=== PATIENT | female | born 1980 | race Caucasian/White ===

== ENCOUNTER 2018-04-24 13:30 | Emergency (ER) | payer OTHER ==
[~2018-04-24] VITALS: Ht 160 cm; Wt 70.3 kg
[~2018-04-24 13:30] MED LIST: DICY20TA32 PO; DIPH50TA15 PO; IBUP-1957 PO; LAMO25TA5 PO; METH500T PO; PROC10VI IJ; QUET50TA PO
--- NOTE | 2018-04-24 13:30 | NUR ---
Note taylorone in EDM - 04/24/18 at 1415 by STEPHEN [id number] FROM [facility]SING HOME FOR WITNESSED SYNCOPE X 10 SECONDS, PT IS COMPLAINING NOW OF SEVERE HEADACHE AND BACK PAIN. BS-139 IN THE FIELD. PT IS TACHYCARDIC. PLACED ON CONT CARDIAC AND POX MONITORING. ALL NEEDS ARE ATTENDED, KEPT COMFORTABLE. PENDING ER MD LIMON
--- NOTE | 2018-04-24 13:30 | NUR ---
[id number] FROM [facility] FOR WITNESSED SEIZURE X 10 SECONDS, PT IS COMPLAINING NOW OF SEVERE HEADACHE AND BACK PAIN. BS-139 IN THE FIELD. PT IS TACHYCARDIC. PLACED ON CONT CARDIAC AND POX MONITORING. ALL NEEDS ARE ATTENDED, KEPT COMFORTABLE. PENDING ER MD LIMON
[2018-04-24] MEDS ORDERED: IV NS 0.9% 1,000 ML BAG IV ONE (14:30)
[2018-04-24 15:05] LABS: BASOPHILS % (AUTO) 0.4 % (0.0-2.0); EOSINOPHILS % (AUTO) 2.1 % (0.0-6.0); HEMATOCRIT 37 % (33-45); HEMOGLOBIN 12.6 g/dL (11.5-14.8); LYMPHOCYTES # (AUTO) 1.6 /CMM (0.8-4.8); LYMPHOCYTES % (AUTO) 26.2 % (20.0-44.0); MEAN CORPUSCULAR HGB CONC 34 g/dl (31.0-36.0); MEAN CORPUSCULAR VOLUME 84 fL (82-100); MONOCYTES # (AUTO) 0.5 /CMM (0.1-1.30); MONOCYTES % (AUTO) 9.1 % (2.0-12.0); NEUTROPHILS # (AUTO) 3.8 /CMM (1.8-8.9); NEUTROPHILS % (AUTO) 62.2 % (43.0-81.0); PLATELET COUNT (AUTO) 411 /CMM (150-450); RDW COEFFICIENT OF VARIATION 17.6 (11.5-15.0); RED BLOOD CELL COUNT(AUTO) 4.44 MIL/uL (4.0-5.2)
[2018-04-24 15:19] LABS: INR 0.97 (0.85-1.15)
[2018-04-24 15:20] LABS: CALCIUM, SERUM 8.8 mg/dL (8.5-10.1); CARBON DIOXIDE 26 mmol/L (21-32); CHLORIDE 107 mmol/L (98-107); CREATININE 0.7 mg/dL (0.6-1.3); GLUCOSE 118 mg/dL (74-106); SODIUM SERUM 140 mmol/L (136-145); UREA NITROGEN, BLOOD 18 mg/dL (7-18)
[2018-04-24 15:21] LABS: ALANINE AMINOTRANSFERASE 66 U/L (12-78); ALBUMIN 3.5 g/dL (3.4-5.0); ALCOHOL, BLOOD < 3 mg/dL (0-0); ALKALINE PHOSPHATASE 66 U/L (46-116); ASPARTATE AMINOTRANSFERASE 28 U/L (15-37); BILIRUBIN,TOTAL 0.1 mg/dL (0.2-1.0)
[2018-04-24 17:51] VITALS: BP 130/90
[2018-04-24] MEDS ORDERED: IBUPROFEN 600 MG TABLET PO ONE (18:00)
== END 2018-04-24 17:52 | disposition home or self-care (01) ==
LOC: ER 13:31
DX: R55 Syncope and collapse (principal); E86.0 Dehydration; M54.9 Dorsalgia, unspecified; G89.29 Other chronic pain; G40.909 Epilepsy, unspecified, not intractable, without status epilepticus; I48.91 Unspecified atrial fibrillation; F41.9 Anxiety disorder, unspecified; F17.200 Nicotine dependence, unspecified, uncomplicated; Z98.51 Tubal ligation status
CPT/HCPCS: 36415; 70450; 71045; 72070; 72100; 72125; 80048; 80076; 80305; 82962; 84703; 85025; 85730; 93005; 96360; 99285; A4606; G0480; J7030; Z7610

== ENCOUNTER 2018-07-12 18:56 | Emergency (ER) | payer OTHER ==
[~2018-07-12] VITALS: Ht 165.1 cm; Wt 56.7 kg
[2018-07-12 19:00] VITALS: BP 123/86
[2018-07-12] MEDS ORDERED: IBUPROFEN 600 MG TABLET PO ONE ×2 (21:00)
== END 2018-07-12 21:05 ==
LOC: ER 18:59
DX: M54.9 Dorsalgia, unspecified (principal); G89.29 Other chronic pain; F41.9 Anxiety disorder, unspecified; F17.200 Nicotine dependence, unspecified, uncomplicated; I48.91 Unspecified atrial fibrillation; Z98.51 Tubal ligation status; Y04.8XXA Assault by other bodily force, initial encounter; Y93.89 Activity, other specified; Y92.89 Other specified places as the place of occurrence of the external cause; Y99.8 Other external cause status
CPT/HCPCS: 99283; A4606; Z7610

== ENCOUNTER 2019-06-30 09:03 | Emergency (ER) | payer OTHER ==
[~2019-06-30] VITALS: Ht 162.6 cm; Wt 63.5 kg
[2019-06-30] MEDS ORDERED: IBUPROFEN 400 MG TABLET ONE (09:14)
--- NOTE | 2019-06-30 09:15 | NUR ---
PATIENT AWAKE ALERT AMBULATORY CUSTODY WITH [employer] STANDBY
[2019-06-30] MEDS ORDERED: IBUPROFEN 400 MG TABLET PO ONE (09:30)
[2019-06-30] MEDS ORDERED: HYDROCODONE/APAP 5/325MG 1 EACH TABLET ONE (10:37)
--- NOTE | 2019-06-30 10:41 | NUR ---
OK TO BOOKED DC TO PATRICE AGREES TO FOLLOW UP PMD DC INSTRUCTION AND PRESCRIPTION GIVEN TO THE OFFICER PATRICE
[2019-06-30 10:45] VITALS: BP 134/78
[2019-06-30] MEDS ORDERED: HYDROCODONE/APAP 5/325MG 1 EACH TABLET PO ONE (11:00)
== END 2019-06-30 10:47 ==
LOC: ER 09:05
DX: S30.0XXA Contusion of lower back and pelvis, initial encounter (principal); I48.91 Unspecified atrial fibrillation; F41.9 Anxiety disorder, unspecified; F17.200 Nicotine dependence, unspecified, uncomplicated; Z98.890 Other specified postprocedural states; Z59.0 Homelessness; Z79.899 Other long term (current) drug therapy; W17.89XA Other fall from one level to another, initial encounter; Y93.89 Activity, other specified; Y92.89 Other specified places as the place of occurrence of the external cause; Y99.8 Other external cause status
CPT/HCPCS: 72100-TC; 84703-TC